=== PATIENT | male | born 1980 | race Caucasian/White ===

== ENCOUNTER 2016-05-24 10:48 | Emergency (ER) | payer OTHER ==
--- NOTE | 2016-05-24 16:27 | ED NURSING NOTES ---
Clinical Report - Nurses [place] [address] [place] [address] 05/24/2016 10:48 Patient: CALOS WILLOUGHBY TRIAGE Acuity: LEVEL 3. Chief Complaint: HEADACHE. Alert. No acute distress. --11:19 Leeanna Jennings R.N. 11:15 05/24/16. BP: 135/86. HR: 71. RR: 12. O2 saturation: 100%. Temp: 97.4 F (oral). Pain level now: 02/01. --11:19 Leeanna Jennings R.N. Weight: 104.3 kg stated. Height/Length: 76 inches Per Patient. BMI: 28. --11:17 Leeanna Jennings R.N. Medications None. --11:16 Leeanna Jennings R.N. Medication/allergy information source: the patient. --11:19 Leeanna Jennings R.N. Allergies Codeine. --11:16 Leeanna Jennings R.N. Tramadol. --11:16 Leeanna Jennings R.N. History Arrived by private vehicle. Historian: patient. Accompanied by family. Primary physician ([facility]). This started 2 weeks ago. He has had vomiting. PAST MEDICAL HX: Immunizations: up-to-date. SOCIAL HX: Never smoker. No alcohol use or drug use. FALL RISK ASSESSMENT: Fall risk assessment completed. No fall risk identified. NUTRITIONAL RISK ASSESSMENT: The nutritional risk assessment revealed no deficiencies. FUNCTIONAL ASSESSMENT: Functional assessment: no impairments noted. LEARNING NEEDS ASSESSMENT: The learning needs assessment revealed no barriers. SKIN INTEGRITY ASSESSMENT: Skin integrity risk assessment completed. No skin integrity risk identified. --11:19 Leeanna Jennings R.N. PROBLEMS: Myofascial Strain. Immunizations. --11:16 Leeanna Jennings R.N. Assessment GENERAL / NEURO / PSYCH: Alert. Oriented X 4. Appears in no acute distress. Appears in pain. Patient appears calm and cooperative. RESPIRATORY: Respirations not labored. CVS: Capillary refill less than 2 seconds. GI / : Abdomen soft and nontender. SKIN: Mucous membranes are pink. Skin is warm and dry. --11: Leeanna Jennings R.N. Interventions ID band on patient. To treatment room. --11: Leeanna Jennings R.N. PHYSICAL ASSESSMENT Ambulatory to room. GENERAL / NEURO / PSYCH: Alert. Oriented X 4. Appears in no acute distress. Speech within normal limits. HEENT: No facial asymmetry noted. RESPIRATORY: Respirations not labored. CVS: Capillary refill less than 2 seconds. GI / : Abdomen soft. SKIN: Skin is warm and dry. --11: Leeanna Jennings R.N. NURSING PROGRESS NOTES 11:05/24/16. Patient gowned. Two patient identifiers checked. Call light placed in reach. Side rails up x 1. Bed placed in lowest position. Brakes of bed on. Patient ready for evaluation- chart flagged and ED physician notified. --11: Leeanna Jennings R.N. 13:23 05/24/2016 Started bag #1 1000 mL IV Fluids IV NS (Saline); at 999 mL/hr over 1 hour(s) via site #1 via IV pump. Allergies verified and confirmed 5 rights. IV patency established. IV site checked: no pain, redness, or swelling. IV flushed thoroughly pre- and post-medication administration. --13:33 Leeanna Jennings R.N. 13:27 05/24/2016 Site #1 started via IV in the right antecubital space with an 20g angiocath, with aseptic technique and good blood return; one attempt. Blood drawn: rainbow set. Labeled in the presence of the patient and sent to the lab. --13:27 Leeanna Jennings R.N. 13:27 05/24/2016 Decadron IVP 10 mg given over 1 minute(s) via site #1. Allergies verified and confirmed 5 rights. IV patency established. IV site checked: no pain, redness, or swelling. IV flushed thoroughly pre- and post-medication administration. IVP given by RN. --13:27 Leeanna Jennings R.N. 13:28 05/24/2016 PHENERGAN (Promethazine HCl) IVP 25 mg given over 3 minute(s) via site #1. Allergies verified and confirmed 5 rights. IV patency established. IV site checked: no pain, redness, or swelling. IV flushed thoroughly pre- and post-medication administration. IVP given by RN. --13:28 Leeanna Jennings R.N. 13:29 05/24/2016 Benadryl (DiphenhydrAMINE HCl) IVP 25 mg given over 1 minute(s) via site #1. Allergies verified, confirmed 5 rights and sedative warning given to the patient. IV patency established. IV site checked: no pain, redness, or swelling. IV flushed thoroughly pre- and post-medication administration. IVP given by RN. --13:29 Leeanna Jennings R.N. 13:31 05/24/2016 Toradol IVP 30 mg given over 1 minute(s) via site #1. Allergies verified and confirmed 5 rights. IV patency established. IV site checked: no pain, redness, or swelling. IV flushed thoroughly pre- and post-medication administration. IVP given by RN. --13:31 Leeanna Jennings R.N. 13:57 05/24/16. BP: 129/74. HR: 60. O2 saturation: 99%. --13:57 Marya Bone 14:15 05/24/16. BP: 124/73. HR: 73. RR: 16. O2 saturation: 100% on room air. Pain level now: 02/01. --14:16 Marya Bone 14:16 05/24/16. ( Family at bedside). --14:16 Marya Bone 14:28 05/24/2016 IV Fluids IV NS Discontinued: bag #1 infused. Total amount infused: 1000 mL. IV patency established. IV site checked: no pain, redness, or swelling. IV flushed thoroughly. --14:33 Marya Bone 14:32 05/24/2016 Dilaudid (HYDROmorphone HCl PF) IVP 1 mg given over 1 minute(s) via site #1. Allergies verified, confirmed 5 rights and sedative warning given to the patient and patient's family. IV patency established. IV site checked: no pain, redness, or swelling. IV flushed thoroughly pre- and post-medication administration. IVP given by RN. --14:32 Marya Bone 14:58 05/24/16. BP: 124/75. HR: 75. RR: 16. O2 saturation: 95% on room air. Pain level now: 10/02. --14:59 Marya Bone 16:37 05/24/2016 Site #1 removed upon discharge. Catheter intact. Pressure dressing applied. --16:42 Marya Bone. DISPOSITION / DISCHARGE 16:40 05/24/16. Departure time: 16:40 May 24 2016. Condition at departure: improved. The goals identified in the patient's plan of care were met. No learning barriers present. Discharge instructions provided and reviewed with the patient. Reviewed warnings (Patient verbalized understanding of sedation warning. Patient verbalized awareness of warning s/sx listed in dc paperwork.). Reviewed medication(s) side effects, precautions, dosing and course information. Prescription(s) given to the patient (Oxycodone, Zofran). Treatments reviewed. Reviewed referral to a primary care physician for followup. Patient verbalized understanding. Written instructions provided in Romansh. The patient was discharged by the physician. He was discharged home and accompanied by family. He left the Emergency Department ambulatory and via private vehicle. Family member driving. FALL RISK ASSESSMENT: Fall risk assessment completed. No fall risk identified. --16:40 Marya Bone 16:39 05/24/16. BP: 120/77. HR: 75. RR: 16. O2 saturation: 96% on room air. Temp: 98.2 F. Pain level now: 09/01. --16:40 Marya Bone. Locked/Released at 05/24/2016 16:42 by Marya Bone,
--- NOTE | 2016-05-24 16:27 | ED CLINICAL REPORT ---
Clinical Report - Physicians/Mid Levels [facility] [address] [place] [place] [address] 05/24/2016 10:48 Patient: CALOS WILLOUGHBY Arrived- By private vehicle. Historian- patient. HISTORY OF PRESENT ILLNESS Chief Complaint: HEADACHE. Is still present (styaing the same). This started past 3 - 4 days. It was gradual in onset and has been constant but is not gone now. Patient was last known well (4 - 5 days ago). Onset during rest. It is described as similar to previous headaches. Located in the left hemicranial region. No neck pain. Not located in the facial region. At its maximum, severity described as severe. When seen in the E.D., severity described as severe. Modifying factors: worsened by bright light and noise; relieved by dark room. The patient has had photophobia, nausea and vomiting. No preceding symptoms, blurred vision, numbness or weakness. (reports no fever). No recent travel. Similar symptoms previously: Once. Recent medical care: Not recently seen/assessed. REVIEW OF SYSTEMS No fever. All systems otherwise negative, except as recorded above. PAST HISTORY See nurses notes. Medications: None. Allergies: Codeine. Tramadol. SOCIAL HISTORY Never smoker. No alcohol use or drug use. Is a local resident. FAMILY HISTORY History of migraine headaches in first-degree relative (mother). ADDITIONAL NOTES The nursing notes have been reviewed. PHYSICAL EXAM Vital Signs: 05/24/2016 11:15 BP: 135/86. HR: 71. RR: 12. O2 saturation: 100%. Temp: 97.4 F. Pain level now: 10/10. Blood pressure normal. Oxygen saturation normal. Appearance: Alert. No acute distress. Eyes: Pupils equal, round and reactive to light. Eyes normal inspection. (funduscopic exam reveals normal-appearing retinal vasculature. No papilledema.). ENT: Ears normal. Nose normal. Pharynx normal. Neck: Normal inspection. Neck supple. No meningeal signs or lymphadenopathy. CVS: Normal heart rate and rhythm. Heart sounds normal. Pulses normal. Respiratory: No respiratory distress. Breath sounds normal. Abdomen: Soft and nontender. No organomegaly. Back: Normal inspection. Skin: Skin warm and dry. Normal skin color. No rash. Normal skin turgor. Extremities: Extremities exhibit normal ROM. No lower extremity edema. Neuro: Oriented X 3. Alert. Mood/affect normal. Speech normal. Cranial nerves normal (as tested). No cerebellar findings. No motor deficit. No sensory deficit. Reflexes normal. PROGRESS AND PROCEDURES Course of Care: The patient is a pleasant 36-year-old male with past medical history significant for headaches in the past presented for a knife headache. Symptoms have been ongoing for the past several days. No signs of meningitis on history or examination. Patient appears nontoxic. Onset of headache was gradual. Did not reach its maximum intensitywithin an hour. Do not feel patient has subarachnoid hemorrhage. Exam is not consistent with increased intracranial pressure. Patient will be treated conservatively with vacations for headache. We will reevaluate the patient once these medications of been given and had time to take effect. Upon reevaluation, patient states that he feels sleepy however still has the headache. Although narcotics are not first-line for headaches, because the patient has had persistent headaches and the first-line treatment has not worked, we'll provide patient with narcotic pain medication for the headache. Patient continues to be nontoxic and in no acute distress. Patient was reevaluated after the medications and given. Patient reports significant improvement with the headache symptoms. Do not the patient is be admitted to the hospital require further emergency department evaluation. Because symptoms are not consistent with meningitis, do not feel patient requires lumbar puncture at this time. Discussed with patient workup, diagnosis, home care, follow-up, and return precautions. All questions answered. The patient expressed understanding of these instructions and was agreeable to them. Patient with normal gait Upon discharge. Neurological exam continues to be in unremarkable. Disposition: Discharged. Condition: good. CLINICAL IMPRESSION Acute headache (left sided). 05/24/2016 11:15 BP: 135/86. HR: 71. RR: 12. O2 saturation: 100%. Temp: 97.4 F. Pain level now: 10/10. Blood pressure normal. Oxygen saturation normal. INSTRUCTIONS Do not work today, tomorrow. Warnings: GENERAL WARNINGS: Return or contact your physician immediately if your condition worsens or changes unexpectedly, if not improving as expected, or if other problems arise. SPECIFICALLY, return if you develop fever, vomiting, numbness, weakness, difficulty thinking, visual disturbances, fainting or extreme fatigue. Your Current Medications: CONTINUE TAKING THE FOLLOWING MEDICATIONS: None*. Prescription Medications: Zofran ODT 4 mg: take 1 orally every 8 hours as needed for nausea and vomiting. Dispense ten (10). No refill. Substitution is permissible. Oxycodone/APAP 5 mg/325 mg: take 1 tablet orally every 6 hours as needed for pain. Dispense ten (10). No refill. Follow-up: Return to the emergency department as needed. Follow up with your doctor in three days. Reason for referral: recheck today's concerns. Summary of care provided to patient via paper. Screening today revealed the patient's blood pressure to be in the normal range. The patient should follow up with a primary care provider for blood pressure management. Understanding of the discharge instructions verbalized by patient. (Electronically signed by Dmitriy Monzon Dr. 05/26/2016 16:59)
--- NOTE | 2016-05-24 16:27 | ED ORDER SUMMARY ---
..... Patient: CALOS WILLOUGHBY OrderSheet [facility] VisitID: [id number] [place] [address] 36y, M Registration Date/Time: 05/24/2016 ORDER SHEET Weight: 104.3 kg (stated) Allergies: Codeine, Tramadol GENERAL ORDERS: Pulse oximeter (12:34 05/24/2016 Carol Epps) (13:06 MWinterer R.N.) MEDICATION ORDERS: Phenergan IV 25 mg (HIGH ALERT MEDICATION, NOW) (12:33 05/24/2016 Carol Epps) (Ack 13:06 MWinterer R.N.) (13:28 MWinterer R.N.) IV FLUIDS: IV NS : initial bolus 1000 mL (1000 mL/hr), then none - for X1 (NOW) (12:33 05/24/2016 Carol Epps) (Ack 13:06 MWinterer R.N.) (13:33 MWinterer R.N.) Benadryl IV 25 mg (NOW) (12:34 05/24/2016 Carol Epps) (Ack 13:06 MWinterer R.N.) (13:29 MWinterer R.N.) Toradol IV 30 mg (NOW) (12:34 05/24/2016 Carol Epps) (Ack 13:06 MWinterer R.N.) (13:31 MWinterer R.N.) Decadron IV 10 mg (NOW) (12:34 05/24/2016 Carol Epps) (Ack 13:06 MWinterer R.N.) (13:27 MWinterer R.N.) Dilaudid IV 1 mg (HIGH ALERT MEDICATION, NOW) (14:25 05/24/2016 Carol Epps) (14:32 [facility]) ORDER SHEET NOTES: [Electronically signed by Marya Bone (16:42 05/24/2016)] [Electronically signed by Dmitriy Monzon Dr. (16:59 05/26/2016)] [Electronically locked/signed by Marya Bone (16:42 05/24/2016)]
--- NOTE | 2016-05-24 16:27 | ED ORDER SUMMARY ---
..... Patient: CALOS WILLOUGHBY OrderSheet [facility] VisitID: [id number] [place] [address] 36y, M Registration Date/Time: 05/24/2016 ORDER SHEET Weight: 104.3 kg (stated) Allergies: Codeine, Tramadol GENERAL ORDERS: Pulse oximeter (12:34 05/24/2016 Carol Epps) (13:06 MWinterer R.N.) MEDICATION ORDERS: Phenergan IV 25 mg (HIGH ALERT MEDICATION, NOW) (12:33 05/24/2016 Carol Epps) (Ack 13:06 MWinterer R.N.) (13:28 MWinterer R.N.) IV FLUIDS: IV NS : initial bolus 1000 mL (1000 mL/hr), then none - for X1 (NOW) (12:33 05/24/2016 Carol Epps) (Ack 13:06 MWinterer R.N.) (13:33 MWinterer R.N.) Benadryl IV 25 mg (NOW) (12:34 05/24/2016 Carol Epps) (Ack 13:06 MWinterer R.N.) (13:29 MWinterer R.N.) Toradol IV 30 mg (NOW) (12:34 05/24/2016 Carol Epps) (Ack 13:06 MWinterer R.N.) (13:31 MWinterer R.N.) Decadron IV 10 mg (NOW) (12:34 05/24/2016 Carol Epps) (Ack 13:06 MWinterer R.N.) (13:27 MWinterer R.N.) Dilaudid IV 1 mg (HIGH ALERT MEDICATION, NOW) (14:25 05/24/2016 Carol Epps) (14:32 [facility]) ORDER SHEET NOTES: [Electronically signed by Marya Bone (16:42 05/24/2016)] [Electronically signed by Dmitriy Monzon Dr. (16:59 05/26/2016)] [Electronically locked/signed by Marya Bone (16:42 05/24/2016)]
--- NOTE | 2016-05-26 16:59 | ED DISCHARGE INSTRUCTIONS ---
Patient: CALOS WILLOUGHBY General Instructions [facility] VisitID: [id number] [place] [address] 36y, M Registration Date/Time: 05/24/2016 Acute headache (left sided). 05/24/2016 11:15 BP: 135/86. HR: 71. RR: 12. O2 saturation: 100%. Temp: 97.4 F. Pain level now: 02/01. Blood pressure normal. Oxygen saturation normal. INSTRUCTIONS Do not work today, tomorrow. Warnings: GENERAL WARNINGS: Return or contact your physician immediately if your condition worsens or changes unexpectedly, if not improving as expected, or if other problems arise. SPECIFICALLY, return if you develop fever, vomiting, numbness, weakness, difficulty thinking, visual disturbances, fainting or extreme fatigue. Your Current Medications: CONTINUE TAKING THE FOLLOWING MEDICATIONS: None*. Prescription Medications: Zofran ODT 4 mg: take 1 orally every 8 hours as needed for nausea and vomiting. Dispense ten (10). No refill. Substitution is permissible. Oxycodone/APAP 5 mg/325 mg: take 1 tablet orally every 6 hours as needed for pain. Dispense ten (10). No refill. Follow-up: Return to the emergency department as needed. Follow up with your doctor in three days. Reason for referral: recheck today's concerns. Summary of care provided to patient via paper. Screening today revealed the patient's blood pressure to be in the normal range. The patient should follow up with a primary care provider for blood pressure management. Understanding of the discharge instructions verbalized by patient. ADDITIONAL INFORMATION Headache [Unspecified] The cause of your headache today is not clear, but it does not appear to be the sign of any serious illness. Under stress, some people tense the muscles of their shoulder, neck and scalp without knowing it. If this condition lasts long enough, a TENSION HEADACHE can occur. A MIGRAINE HEADACHE is caused by changes in blood flow to the brain. A migraine attack may be triggered by emotional stress, hormone changes during the menstrual cycle, oral contraceptives, alcohol use, certain foods containing tyramine, eye strain, weather changes, missing meals, lack of sleep or oversleeping. Other causes of headache include a viral illness with high fever, head injury with concussion, sinus, ear or throat infection, dental pain and TMJ (jaw joint) pain. More serious but less common causes of headache include stroke, brain hemorrhage, brain tumor, meningitis and encephalitis. Home Care: If you were given pain medicine for this headache, do not drive yourself home. Arrange for a ride, instead. When you get home, try to sleep. You should feel much better when you wake up. Apply heat to the back of your neck to relieve neck muscle spasm. Migraine headaches may respond best to an ice pack on the forehead or at the base of the skull. If you are having nausea or vomiting, follow a light diet until your headache is relieved. If you have a migraine type headache, use sunglasses when in the daylight or around bright indoor lighting until symptoms improve. Bright glaring light can worsen this kind of headache. Follow Up with your doctor if the headache is not better within the next 24 hours. If you have frequent headaches you should discuss a treatment plan with your primary care doctor. By being aware of the earliest signs of headache, and starting treatment right away, you may be able to stop the pain yourself. Get Prompt Medical Attention if any of the following occur: Worsening of your head pain or no improvement within 24 hours Repeated vomiting (unable to keep liquids down) Fever of 100.4F (38C) or higher, or as directed by your healthcare provider Stiff neck Extreme drowsiness, confusion or fainting Dizziness, vertigo (dizziness with spinning sensation) Weakness of an arm or leg or one side of the face Difficulty with speech or vision Ondansetron Oral disintegrating tablet What is this medicine? ONDANSETRON (on MEGAN se darci) is used to treat nausea and vomiting caused by chemotherapy. It is also used to prevent or treat nausea and vomiting after surgery. How should I use this medicine? These tablets are made to dissolve in the mouth. Do not try to push the tablet through the foil backing. With dry hands, peel away the foil backing and gently remove the tablet. Place the tablet in the mouth and allow it to dissolve, then swallow. While you may take these tablets with water, it is not necessary to do so. Talk to your senior windows systems engineer regarding the use of this medicine in children. Special care may be needed. What side effects may I notice from receiving this medicine? Side effects that you should report to your doctor or health occasional caregiver as soon as possible: allergic reactions like skin rash, itching or hives, swelling of the face, lips, or tongue breathing problems dizziness fast or irregular heartbeat feeling faint or lightheaded, falls fever and chills swelling of the hands and feet tightness in the chest Side effects that usually do not require medical attention (report to your doctor or health occasional caregiver if they continue or are bothersome): constipation or diarrhea headache What may interact with this medicine? Do not take this medicine with any of the following medications: -apomorphine -cisapride -dofetilide -dronedarone -pimozide -thioridazine -ziprasidone This medicine may also interact with the following medications: -carbamazepine -phenytoin -rifampicin -tramadol -other medicines that prolong the QT interval (cause an abnormal heart rhythm) What if I miss a dose? If you miss a dose, take it as soon as you can. If it is almost time for your next dose, take only that dose. Do not take double or extra doses. Where should I keep my medicine? Keep out of the reach of children. Store between 2 and 30 degrees C (36 and 86 degrees F). Throw away any unused medicine after the expiration date. What should I tell my health care provider before I take this medicine? They need to know if you have any of these conditions: heart disease history of irregular heartbeat liver disease low levels of magnesium or potassium in the blood an unusual or allergic reaction to ondansetron, granisetron, other medicines, foods, dyes, or preservatives or trying to get breast-feeding What should I watch for while using this medicine? Check with your doctor or health occasional caregiver as soon as you can if you have any sign of an allergic reaction. Oxycodone Hydrochloride, Acetaminophen Oral tablet What is this medicine? ACETAMINOPHEN; OXYCODONE (a set a JESUS emil fen; ox i KOE done) is a pain reliever. It is used to treat mild to moderate pain. How should I use this medicine? Take this medicine by mouth with a full glass of water. Follow the directions on the prescription label. Take your medicine at regular intervals. Do not take your medicine more often than directed. Talk to your senior windows systems engineer regarding the use of this medicine in children. Special care may be needed. Patients over 65 years old may have a stronger reaction and need a smaller dose. What side effects may I notice from receiving this medicine? Side effects that you should report to your doctor or health occasional caregiver as soon as possible: allergic reactions like skin rash, itching or hives, swelling of the face, lips, or tongue breathing difficulties, wheezing confusion light headedness or fainting spells severe stomach pain yellowing of the skin or the whites of the eyes Side effects that usually do not require medical attention (report to your doctor or health occasional caregiver if they continue or are bothersome): dizziness drowsiness nausea vomiting What may interact with this medicine? alcohol antihistamines barbiturates like amobarbital, butalbital, butabarbital, methohexital, pentobarbital, phenobarbital, thiopental, and secobarbital benztropine drugs for bladder problems like solifenacin, trospium, oxybutynin, tolterodine, hyoscyamine, and methscopolamine drugs for breathing problems like ipratropium and tiotropium drugs for certain stomach or intestine problems like propantheline, homatropine methylbromide, glycopyrrolate, atropine, belladonna, and dicyclomine general anesthetics like etomidate, ketamine, nitrous oxide, propofol, desflurane, enflurane, halothane, isoflurane, and sevoflurane medicines for depression, anxiety, or psychotic disturbances medicines for sleep muscle relaxants naltrexone narcotic medicines (opiates) for pain phenothiazines like perphenazine, thioridazine, chlorpromazine, mesoridazine, fluphenazine, prochlorperazine, promazine, and trifluoperazine scopolamine tramadol trihexyphenidyl What if I miss a dose? If you miss a dose, take it as soon as you can. If it is almost time for your next dose, take only that dose. Do not take double or extra doses. Where should I keep my medicine? Keep out of the reach of children. This medicine can be abused. Keep your medicine in a safe place to protect it from theft. Do not share this medicine with anyone. Selling or giving away this medicine is dangerous and against the law. Store at room temperature between 20 and 25 degrees C (68 and 77 degrees F). Keep container tightly closed. Protect from light. This medicine may cause accidental overdose and if it is taken by other adults, children, or pets. Flush any unused medicine down the toilet to reduce the chance of harm. Do not use the medicine after the expiration date. What should I tell my health care provider before I take this medicine? They need to know if you have any of these conditions: brain tumor Crohn's disease, inflammatory bowel disease, or ulcerative colitis drink more than 3 alcohol containing drinks per day drug abuse or addiction head injury heart or circulation problems kidney disease or problems going to the bathroom liver disease lung disease, asthma, or breathing problems an unusual or allergic reaction to acetaminophen, oxycodone, other opioid analgesics, other medicines, foods, dyes, or preservatives or trying to get breast-feeding What should I watch for while using this medicine? Tell your doctor or health occasional caregiver if your pain does not go away, if it gets worse, or if you have new or a different type of pain. You may develop tolerance to the medicine. Tolerance means that you will need a higher dose of the medication for pain relief. Tolerance is normal and is expected if you take this medicine for a long time. Do not suddenly stop taking your medicine because you may develop a severe reaction. Your body becomes used to the medicine. This does NOT mean you are addicted. Addiction is a behavior related to getting and using a drug for a non-medical reason. If you have pain, you have a medical reason to take pain medicine. Your doctor will tell you how much medicine to take. If your doctor wants you to stop the medicine, the dose will be slowly lowered over time to avoid any side effects. You may get drowsy or dizzy. Do not drive, use machinery, or do anything that needs mental alertness until you know how this medicine affects you. Do not stand or sit up quickly, especially if you are an older patient. This reduces the risk of dizzy or fainting spells. Alcohol may interfere with the effect of this medicine. Avoid alcoholic drinks. There are different types of narcotic medicines (opiates) for pain. If you take more than one type at the same time, you may have more side effects. Give your health care provider a list of all medicines you use. Your doctor will tell you how much medicine to take. Do not take more medicine than directed. Call emergency for help if you have problems breathing. The medicine will cause constipation. Try to have a bowel movement at least every 2 to 3 days. If you do not have a bowel movement for 3 days, call your doctor or health occasional caregiver. Do not take Tylenol (acetaminophen) or medicines that have acetaminophen with this medicine. Too much acetaminophen can be very dangerous. Many nonprescription medicines contain acetaminophen. Always read the labels carefully to avoid taking more acetaminophen. You have been given the following additional information: Headache, Unspecified Ondansetron Oral disintegrating tablet Oxycodone Hydrochloride, Acetaminophen Oral tablet Do not work today, tomorrow. (Electronically signed by Dmitriy Monzon Dr. 05/26/2016 16:59)
--- NOTE | 2016-05-26 17:00 | ED MAR SUMMARY ---
..... Medication Administration Record [facility] [address] [place] [address] Patient: CALOS WILLOUGHBY Visit ID: [id number] 36y, M Weight: 104.3 kg Height/Length: 76 in BMI: 28 ALLERGIES: Tramadol, Codeine Start 13:05/24/2016 Leeanna Jennings R.N., Stop 14:05/24/2016 Marya Bone, Medication Administered: IV NS (SALINE), Dose: IV Fluids over 1 hour(s), Rate: 999 mL/hr, Dispensed: 1000 mL bag, Site: #1. Medication Ordered: IV NS : initial bolus 1000 mL (1000 mL/hr), then none - for X1 (NOW). Given 13:05/24/2016 Leeanna Jennings R.N. Medication Administered: DECADRON [IVP], Dose: 10 mg IVP over 1 minute(s), Site: #1 right AC. Medication Ordered: Decadron IV 10 mg (NOW). Given 13:05/24/2016 Leeanna Jennings R.N. Medication Administered: PHENERGAN [IVP] (PROMETHAZINE HCL), Dose: 25 mg IVP over 3 minute(s), Site: #1 right AC. Medication Ordered: Phenergan IV 25 mg (HIGH ALERT MEDICATION, NOW). Given 13:05/24/2016 Leeanna Jennings R.N. Medication Administered: BENADRYL [IVP] (DIPHENHYDRAMINE HCL), Dose: 25 mg IVP over 1 minute(s), Site: #1 right AC. Medication Ordered: Benadryl IV 25 mg (NOW). Given 13:05/24/2016 Leeanna Jennings R.N. Medication Administered: TORADOL [IVP], Dose: 30 mg IVP over 1 minute(s), Site: #1 right AC. Medication Ordered: Toradol IV 30 mg (NOW). Given 14:05/24/2016 Marya Bone, Medication Administered: DILAUDID [IVP] (HYDROMORPHONE HCL PF), Dose: 1 mg IVP over 1 minute(s), Site: #1 right AC. Medication Ordered: Dilaudid IV 1 mg (HIGH ALERT MEDICATION, NOW).
--- NOTE | 2016-05-26 17:00 | ED MAR SUMMARY ---
..... Medication Administration Record [facility] [address] [place] [address] Patient: CALOS WILLOUGHBY Visit ID: [id number] 36y, M Weight: 104.3 kg Height/Length: 76 in BMI: 28 ALLERGIES: Tramadol, Codeine Start 13:05/24/2016 Leeanna Jennings R.N., Stop 14:05/24/2016 Marya Bone, Medication Administered: IV NS (SALINE), Dose: IV Fluids over 1 hour(s), Rate: 999 mL/hr, Dispensed: 1000 mL bag, Site: #1. Medication Ordered: IV NS : initial bolus 1000 mL (1000 mL/hr), then none - for X1 (NOW). Given 13:05/24/2016 Leeanna Jennings R.N. Medication Administered: DECADRON [IVP], Dose: 10 mg IVP over 1 minute(s), Site: #1 right AC. Medication Ordered: Decadron IV 10 mg (NOW). Given 13:05/24/2016 Leeanna Jennings R.N. Medication Administered: PHENERGAN [IVP] (PROMETHAZINE HCL), Dose: 25 mg IVP over 3 minute(s), Site: #1 right AC. Medication Ordered: Phenergan IV 25 mg (HIGH ALERT MEDICATION, NOW). Given 13:05/24/2016 Leeanna Jennings R.N. Medication Administered: BENADRYL [IVP] (DIPHENHYDRAMINE HCL), Dose: 25 mg IVP over 1 minute(s), Site: #1 right AC. Medication Ordered: Benadryl IV 25 mg (NOW). Given 13:05/24/2016 Leeanna Jennings R.N. Medication Administered: TORADOL [IVP], Dose: 30 mg IVP over 1 minute(s), Site: #1 right AC. Medication Ordered: Toradol IV 30 mg (NOW). Given 14:05/24/2016 Marya Bone, Medication Administered: DILAUDID [IVP] (HYDROMORPHONE HCL PF), Dose: 1 mg IVP over 1 minute(s), Site: #1 right AC. Medication Ordered: Dilaudid IV 1 mg (HIGH ALERT MEDICATION, NOW).
--- NOTE | 2016-05-26 17:00 | ED MED RECONCILIATION SUMMARY ---
Patient: CALOS WILLOUGHBY Medication Reconciliation Report [facility] VisitID: [id number] [address] [place] [address] 36y, M Registration Date/Time: 05/24/2016 Weight: 104.3 kg Height/Length: 76 in. BMI: 28.0 ALLERGIES: Codeine, Tramadol The patient's Home Medications are listed below: NONE. The source(s) of the original Home Medication information: patient The following Medications were given to the patient in the Emergency Department: Decadron [IVP] IVP 10 mg, administered: 05/24/2016 1:27:00 PM PHENERGAN [IVP] IVP 25 mg, administered: 05/24/2016 1:28:00 PM Benadryl [IVP] IVP 25 mg, administered: 05/24/2016 1:29:00 PM Toradol [IVP] IVP 30 mg, administered: 05/24/2016 1:31:00 PM IV NS IV Fluids bolus 0, then 999 mL/hr, administered: 05/24/2016 1:23:00 PM Dilaudid [IVP] IVP 1 mg, administered: 05/24/2016 2:32:00 PM The following Medications were prescribed to the patient: Zofran ODT 4 mg: take 1 orally every 8 hours as needed for nausea and vomiting. Dispense ten (10). No refill. Substitution is permissible. -- Dmitriy Monzon Dr. Oxycodone/APAP 5 mg/325 mg: take 1 tablet orally every 6 hours as needed for pain. Dispense ten (10). No refill. -- Dmitriy Monzon Dr.
--- NOTE | 2016-05-26 17:00 | ED MED RECONCILIATION SUMMARY ---
Patient: CALOS WILLOUGHBY Medication Reconciliation Report [facility] VisitID: [id number] [address] [place] [address] 36y, M Registration Date/Time: 05/24/2016 Weight: 104.3 kg Height/Length: 76 in. BMI: 28.0 ALLERGIES: Codeine, Tramadol The patient's Home Medications are listed below: NONE. The source(s) of the original Home Medication information: patient The following Medications were given to the patient in the Emergency Department: Decadron [IVP] IVP 10 mg, administered: 05/24/2016 1:27:00 PM PHENERGAN [IVP] IVP 25 mg, administered: 05/24/2016 1:28:00 PM Benadryl [IVP] IVP 25 mg, administered: 05/24/2016 1:29:00 PM Toradol [IVP] IVP 30 mg, administered: 05/24/2016 1:31:00 PM IV NS IV Fluids bolus 0, then 999 mL/hr, administered: 05/24/2016 1:23:00 PM Dilaudid [IVP] IVP 1 mg, administered: 05/24/2016 2:32:00 PM The following Medications were prescribed to the patient: Zofran ODT 4 mg: take 1 orally every 8 hours as needed for nausea and vomiting. Dispense ten (10). No refill. Substitution is permissible. -- Dmitriy Monzon Dr. Oxycodone/APAP 5 mg/325 mg: take 1 tablet orally every 6 hours as needed for pain. Dispense ten (10). No refill. -- Dmitriy Monzon Dr.
== END 2016-05-24 16:40 | disposition home or self-care (01) ==
LOC: ED SRH 10:48
DX: R51 Headache (principal); Z88.5 Allergy status to narcotic agent; Z88.8 Allergy status to other drugs, medicaments and biological substances